=== PATIENT | female | born 1935 | race Caucasian/White ===

== ENCOUNTER → 2018-07-30 | Outpatient (CLI) | payer MEDICARE ==
[~2018-07-30] MED LIST: PNT40TEC PO
--- NOTE | 2018-07-31 07:43 | Diagnostic Imaging Report ---
INDICATION: Digital mammogram bilateral screening with 3D tomosynthesis. This study was compared to the prior exams of 07/29/2014, 07/26/2013 and 07/25/2012. At this time there are no current complaints. The current study was also evaluated with a Computer Aided Detection (CAD) system. FINDINGS: The fibroglandular tissue in both breasts is heterogeneously dense. This does limit the sensitivity of this exam. Overall, there does not appear to have been any significant change when compared to the prior study. No primary or secondary sign of malignancy is noted. IMPRESSION: There is no radiographic evidence for malignancy. ACR BI-RADS Category 1: Negative. Result letter will be mailed to the patient. Note: At least 10% of breast cancer is not imaged by mammography. Dictated by: Dictated on workstation # [id number]
== END ==
LOC: RAD 09:17
PROVIDERS: ATTEND Family Medicine
DX: Z12.31 Encounter for screening mammogram for malignant neoplasm of breast (principal)
CPT/HCPCS: 77067

== ENCOUNTER → 2019-08-16 | Outpatient (CLI) | payer MEDICARE ==
--- NOTE | 2019-08-19 09:05 | Diagnostic Imaging Report ---
INDICATION: Screening The current study was also evaluated with a Computer Aided Detection (CAD) system. 3-D Tomographic imaging was also performed. Comparison made with prior examination of 07/30/2018, 07/29/2014 and 07/26/2013. FINDINGS: The fibroglandular tissues are heterogeneously dense bilaterally. There are vascular benign type calcifications. There is no dominant mass, spiculated lesion or suspicious calcification identified. Skin, nipples and axilla are unremarkable. IMPRESSION: Category 2 benign. ACR BI-RADS Category 2: Benign findings. Result letter will be mailed to the patient. Note: At least 10% of breast cancer is not imaged by mammography. Dictated by: Dictated on workstation # [id number]
== END ==
LOC: RAD 14:42
PROVIDERS: ATTEND Family Medicine
DX: Z12.31 Encounter for screening mammogram for malignant neoplasm of breast (principal)
CPT/HCPCS: 77067

== ENCOUNTER 2020-06-08 11:41 | Emergency (ER) | payer MEDICARE ==
[~2020-06-08] VITALS: Ht 149 cm; Wt 51.0 kg
[2020-06-08] MEDS ORDERED: METF-397 (12:29)
[2020-06-08] MEDS ORDERED: ATOR10TA66 (12:29)
[2020-06-08] MEDS ORDERED: cloNIDine 0.1 MG (CATAPRES) TAB PO ONE (12:30)
--- NOTE | 2020-06-08 12:31 | ED EENT ---
History of Present Illness General Chief Complaint: Nasal Problems Stated Complaint: NOSE BLEED Source: patient Exam Limitations: no limitations History of Present Illness Date Seen by Provider: Jun 08, 2020 Time Seen by Provider: 12:27 Initial Comments To ER with right-sided nosebleed that lasted for about 20 minutes this morning while at work. Is resolved now. She otherwise feels fine. No fevers no chills no shortness of breath no chest pain no lightheadedness Timing/Duration: abrupt Location: nose Allergies and Home Medications Allergies Coded Allergies: No Known Drug Allergies (Unverified , 10/29/14) Home Medications Pantoprazole Sod 40 Mg Tab, 40 MG PO DAILY Prescribed by: KAMINI FRITZ on 10/30/14 0007 Patient Home Medication List Home Medication List Reviewed: Yes Review of Systems Review of Systems Constitutional: see HPI Eyes: No Symptoms Reported Ears: No Symptoms Reported Nose: see HPI Mouth: no symptoms reported Throat: no symptoms reported Respiratory: no symptoms reported Cardiovascular: no symptoms reported Musculoskeletal: no symptoms reported Skin: no symptoms reported Neurological: No Symptoms Reported Hematologic/Lymphatic: No Symptoms Reported Immunological/Allergic: no symptoms reported Past Ykosvke-Aoblgs-Ikjhxg Hx Patient Social History Alcohol Use: Denies Use Recreational Drug Use: No Smoking Status: Former Smoker Former Smoker, Quit: May 23, 1990 Recent Foreign Travel: No Contact w/Someone Who Travel: No Past Medical History Surgeries: Yes (SKIN CA REMOVAL) Respiratory: No Cardiac: No Neurological: No Reproductive Disorders: No Female Reproductive Disorders: Denies Sexually Transmitted Disease: No HIV/AIDS: No Gastrointestinal: Yes (DYSPHAGIA--NO TESTS DONE) Musculoskeletal: No Endocrine: Yes Hypothyroidsim, Diabetes, Non-Insulin dep Cancer: No Psychosocial: No Integumentary: No Blood Disorders: No Adverse Reaction/Blood Tranf: No Physical Exam Vital Signs Vital Signs - First Documented 06/08/20 12:22 Temp 36.7 Pulse 105 Resp 20 B/P (MAP) 204/110 (141) Pulse Ox 99 Height, Weight, BMI Height: 5'0" Weight: 118lbs. oz. [id number]; BMI Method:Stated General Appearance: WD/WN, no apparent distress, other (erythema to the right side of the septum but no active bleeding. No blood in oropharynx. Left nostril is normal. She is hypertensive at 200/100. We will give her a clonidine tablet to get the blood pressure down. Told her to come back if she has any concerns. Since she otherwise feels fine without lightheadedness laboratory evaluation will not be helpful. She does have some petechial appearance rash to the palms of her hands but she states this has been there for many years and is no differe nt.) Eyes: bilateral eye normal inspection, bilateral eye PERRL, bilateral eye EOMI Ears: bilateral ear auricle normal, bilateral ear canal normal, bilateral ear TM normal Neck: non-tender, full range of motion Respiratory: normal breath sounds, no respiratory distress, no accessory muscle use Neurologic/Psychiatric: alert, normal mood/affect, oriented x 3 Skin: normal color, warm/dry Progress/Results/Core Measures Results/Orders My Orders Orders - KEERTHI DOTY APRN Clonidine Tablet (Catapres Tablet) (06/08/20 12:30) Medications Given in ED Current Medications Medications Dose Ordered Sig/Gigi Route Start Time Stop Time Status Last Admin Dose Admin Clonidine HCl 0.1 mg ONCE ONCE PO 06/08/20 12:30 06/08/20 12:31 DC 06/08/20 12:32 0.1 MG Vital Signs/I&O 06/08/20 06/08/20 12:22 12:37 Temp 36.7 Pulse 105 87 Resp 20 16 B/P (MAP) 204/110 (141) 200/101 Pulse Ox 99 99 Departure Impression Primary Impression: Epistaxis Additional Impression: Hypertension Disposition: 01 HOME, SELF-CARE Condition: Stable Departure-Patient Inst. Decision time for Depature: 12:30 Referrals: DENNY STEELE DO (PCP/Family) Primary Care Physician Patient Instructions: High Blood Pressure (DC) Add. Discharge Instructions: 1. Return to ER for any concerns. Follow-up with your doctor about the high blood pressure. If the nosebleed returns, apply the nose clamp for 20 minutes and if that fails to stop the bleeding then return to the emergency room. All discharge instructions reviewed with patient and/or family. Voiced und erstanding. KEERTHI DOTY APRN Jun 08, 2020 12:31
[2020-06-08 12:37] VITALS: BP 200/101
== END 2020-06-08 12:35 | disposition home or self-care (01) ==
LOC: EDUNIT# 11:41 → ER 11:42
DX: R04.0 Epistaxis (principal); I10 Essential (primary) hypertension; Z87.891 Personal history of nicotine dependence
CPT/HCPCS: 99283

== ENCOUNTER → 2021-04-29 | Outpatient (CLI) | payer MEDICARE ==
[~2021-04-29] MED LIST changes: +ATOR10TA66; +METF-397
[2021-04-29 12:48] LABS: ABSOLUTE RETIC # 64 10e9/uL (24-90); BASOPHILS % (AUTO) 1 % (0-10); EOSINOPHILS % (AUTO) 0 % (0-10); HEMATOCRIT 31 % (35-52); HEMOGLOBIN 8.8 g/dL (11.5-16.0); LYMPHOCYTES # (AUTO) 1.4 10^3/uL (1.0-4.0); LYMPHOCYTES % (AUTO) 30 % (12-44); MEAN CORPUSCULAR HEMOGLOBIN 22 pg (25-34); MEAN CORPUSCULAR HGB CONC 29 g/dL (32-36); MEAN CORPUSCULAR VOLUME 79 fL (80-99); MEAN PLATELET VOLUME 10.8 fL (9.0-12.2); MONOCYTES # (AUTO) 0.6 10^3/uL (0.0-1.0); MONOCYTES % (AUTO) 12 % (0-12); NEUTROPHILS # (AUTO) 2.8 10^3/uL (1.8-7.8); NEUTROPHILS % (AUTO) 57 % (42-75); PLATELET COUNT 165 10^3/uL (130-400); RETICULOCYTE % 1.64 % (0.50-2.40); WHITE BLOOD COUNT 4.9 10^3/uL (4.3-11.0)
[2021-04-29 13:29] LABS: ANISOCYTOSIS SLIGHT; LYMPHOCYTES % (MANUAL) 30 %; MONOCYTES % (MANUAL) 10 %; NEUTROPHILS % (MANUAL) 60 %
[2021-04-29 13:30] LABS: POIKILOCYTOSIS SLIGHT
== END ==
LOC: LAB 12:23
PROVIDERS: ATTEND Family Medicine
DX: D64.9 Anemia, unspecified (principal)
CPT/HCPCS: 36415; 82728; 85007; 85027; 85045; 85055

== ENCOUNTER → 2021-05-05 | Outpatient (CLI) | payer MEDICARE | LOC: LAB | PROVIDERS: ATTEND Family Medicine | DX: D50.9 Iron deficiency anemia, unspecified (principal) | CPT/HCPCS: 36415; 82607; 82746 ==

== ENCOUNTER 2021-06-09 05:30 | Outpatient (RCR) | payer MEDICARE ==
[~2021-06-09] VITALS: Ht 150 cm; Wt 41.2 kg
[~2021-06-09 05:30] MED LIST changes: +LEVO75TA97 PO
== END 2021-06-09 11:15 | disposition home or self-care (01) ==
LOC: PREOP 05:30
PROVIDERS: ATTEND Surgery
DX: Z01.812 Encounter for preprocedural laboratory examination (principal); R13.10 Dysphagia, unspecified; Z20.822 Contact with and (suspected) exposure to COVID-19
CPT/HCPCS: 87635

== ENCOUNTER 2021-06-14 08:27 | Day surgery (SDC) | payer MEDICARE ==
[~2021-06-14] VITALS: Ht 150 cm; Wt 41.2 kg
[2021-06-14] MEDS ORDERED: LACTATED RINGERS 1,000 ML IV STA (08:38)
[2021-06-14] MEDS ORDERED: LACTATED RINGERS 1,000 ML IV ONE (08:43)
[2021-06-14] MEDS ORDERED: HURRICAINE EXT TUBE (BENZOCAINE) XX PRN (08:45)
--- NOTE | 2021-06-14 08:50 | Progress Note-Pre Operative ---
Pre-Operative Progress Note H&P Reviewed The H&P was reviewed, patient examined and no changes noted. Time Seen by Provider: 08:48 Date H&P Reviewed: Jun 14, 2021 Time H&P Reviewed: 08:48 Pre-Operative Diagnosis: Dysphagia ALTAGRACIA CERDA DO Jun 14, 2021 08:50
[2021-06-14] MEDS ORDERED: LABETALOL HCL 20 MG/4 ML VIAL ONE (08:51)
[2021-06-14] MEDS ORDERED: proPOfol 200 MG/20 ML (DIPRIVAN) VIAL IV ONE (08:51)
[2021-06-14 09:08] VITALS: BP 185/85
[2021-06-14 09:57] VITALS: BP 100/53
[2021-06-14 10:03] VITALS: BP 118/57
[2021-06-14 10:05] VITALS: BP 138/61
--- NOTE | 2021-06-14 10:08 | Progress Note-Post Operative ---
Post-Operative Progess Note Surgeon (s)/Gerontology Aide (s) Surgeon ALTAGRACIA CERDA DO Gerontology Aide: none Pre-Operative Diagnosis Dysphagia Post-Operative Diagnosis Esophageal stricture vs Mass Hiatal hernia Procedure & Operative Findings Date of Procedure 06/14/21 Procedure Performed/Findings EGD with bx PROCEDURE NOTE: After informed consent was obtained, the patient was brought to the endoscopy suite, placed in bed in left lateral decubitus position. She was administered IV sedation by the WATER TEAM LEADER who then monitored vitals the entire time, heart rate, blood pressure and pulse ox and the scope was inserted down the mouth through the esophagus and on the way down encountered a very narrow area in the esophagus. Took a picture and then did a biopsy, unable to get the scope past this area. Switched to a Pediatric EGD and able to push into the stomach, saw a gastric polyp; looked like a normal polyp. Pushed past the antrum into the duodenum. Duodenum looked good. Pulled back and then retroflexed the scope, saw a large hiatal hernia, took a picture of this and then pulled the scope into the Hiatal hernia under the GE junction, took another biopsy of the GE junction from underneath and in hiatal hernia. Then pushed the scope back into the stomach, suctioned all the air out of the stomach. At this point pulled the scope up the esophagus and saw some tissue in the upper esophagus that did not look normal. Took a picture and then did a biopsy here and then pulled the scope out the mouth. The patient tolerated the procedure, and she recovered in endoscopy suite. Anesthesia Type IV sedation by WATER TEAM LEADER Estimated Blood Loss Estimated blood loss (mL): scant Specimens/Packing Specimens Removed esophageal bx GE jxn bx upper esophagus bx ALTAGRACIA CERDA DO Jun 14, 2021 10:08
[2021-06-14 10:30] VITALS: BP 163/90
--- NOTE | 2021-06-14 10:34 | Endoscopy Discharge Instruct ---
Endo Procedure/Findings Findings 1.: Other Findings (Esophageal stricture) 2.: Gastritis 3.: Hiatal Hernia Discharge Instructions - Activity: You might feel a little sleepy until tomorrow. This is due to the medicine you received to relax you. Until tomorrow, you should: NOT drive a car, operate machinery or power tools. NOT drink any alcoholic beverages. NOT make any important decisions or sign importortant papers. Do not return to work until tomorrow, unless otherwise instructed. Resume previous activities tomorrow. Diet: Start by taking liquids. If you tolerate liquids, advance to solid food. 1.: EGD in 6-8 weeks Notify Physician - If you experience excessive bleeding, unusual abdominal pain, fever, or chest pain, contact your doctor immediately. ALTAGRACIA CERDA DO Jun 14, 2021 10:34
[2021-06-14 10:37] VITALS: BP 163/90
== END 2021-06-14 09:30 | disposition home or self-care (01) ==
LOC: ENDO 08:27
PROVIDERS: ATTEND Surgery
DX: K22.2 Esophageal obstruction (principal); K44.9 Diaphragmatic hernia without obstruction or gangrene; K22.10 Ulcer of esophagus without bleeding; K21.00 Gastro-esophageal reflux disease with esophagitis, without bleeding; K31.7 Polyp of stomach and duodenum; K29.50 Unspecified chronic gastritis without bleeding; E11.9 Type 2 diabetes mellitus without complications; E07.9 Disorder of thyroid, unspecified; I10 Essential (primary) hypertension; R63.4 Abnormal weight loss; E78.5 Hyperlipidemia, unspecified; Z79.899 Other long term (current) drug therapy; Z79.84 Long term (current) use of oral hypoglycemic drugs; Z80.9 Family history of malignant neoplasm, unspecified

== ENCOUNTER 2021-09-02 05:29 | Outpatient (RCR) | payer MEDICARE ==
[~2021-09-02] VITALS: Ht 149.9 cm; Wt 47.3 kg
[~2021-09-02 05:29] MED LIST changes: +LISI10TA25 PO
== END 2021-09-02 08:39 | disposition home or self-care (01) ==
LOC: PREOP 05:29
PROVIDERS: ATTEND Surgery
DX: Z01.812 Encounter for preprocedural laboratory examination (principal); Z20.822 Contact with and (suspected) exposure to COVID-19
CPT/HCPCS: 87635

== ENCOUNTER 2021-09-07 11:25 | Day surgery (SDC) | payer MEDICARE ==
[2021-09-07] VITALS (7 sets, daily range): BP systolic 115–208; BP diastolic 57–112
[~2021-09-07] VITALS: Ht 149.9 cm; Wt 47.3 kg
[2021-09-07] MEDS ORDERED: LACTATED RINGERS 1,000 ML IV ONE (11:28)
[2021-09-07] MEDS ORDERED: LACTATED RINGERS 1,000 ML IV STA (11:29)
[2021-09-07] MEDS ORDERED: HURRICAINE EXT TUBE (BENZOCAINE) XX PRN (11:30)
[2021-09-07] MEDS ORDERED: LABETALOL HCL 20 MG/4 ML VIAL ONE (12:33)
[2021-09-07] MEDS ORDERED: LABETALOL HCL 20 MG/4 ML VIAL IV ONE (12:45)
[2021-09-07] MEDS ORDERED: proPOfol 200 MG/20 ML (DIPRIVAN) VIAL IV ONE (13:22)
--- NOTE | 2021-09-07 13:27 | Progress Note-Pre Operative ---
Pre-Operative Progress Note H&P Reviewed The H&P was reviewed, patient examined and no changes noted. Time Seen by Provider: 11:58 Date H&P Reviewed: Sep 07, 2021 Time H&P Reviewed: 11:58 Pre-Operative Diagnosis: Reflux, hx of esophageal stricture ALTAGRACIA CERDA DO Sep 07, 2021 13:26
--- NOTE | 2021-09-07 14:18 | Anesthesia-General Post-Op ---
MAC Patient Condition Mental Status/LOC: Same as Preop Cardiovascular: Satisfactory Nausea/Vomiting: Absent Respiratory: Satisfactory Pain: Controlled Complications: Absent Post Op Complications Complications None Follow Up Care/Instructions Patient Instructions None needed. Anesthesiology Discharge Order Discharge Order Patient is doing well, no complaints, stable vital signs, no apparent adverse anesthesia problems. No complications reported per nursing. MARIELOS VALDEZ CRNA Sep 07, 2021 14:18
--- NOTE | 2021-09-07 14:28 | Progress Note-Post Operative ---
Post-Operative Progess Note Surgeon (s)/Hardwood Floor Layer (s) Surgeon ALTAGRACIA CERDA DO Hardwood Floor Layer: none Pre-Operative Diagnosis Reflux, hx of esophageal stricture Post-Operative Diagnosis Esophageal stricture Esophagitis Gastritis Hiatal Hernia Procedure & Operative Findings Date of Procedure 09/07/21 Procedure Performed/Findings EGD with bx PROCEDURE NOTE: After informed consent was obtained, the patient was brought to the endoscopy suite, placed in bed in left lateral decubitus position. She was administered IV sedation by the SALES SUPPORT ENGINEER who then monitored vitals the entire time, heart rate, blood pressure and pulse ox and the scope was inserted down the mouth through the esophagus into the stomach. On the way down, noted some severe esophagitis and retained food, took a picture. There may have been a small stricture but easily pushed the scope past this and pushed into the stomach; noted some Gastritis. Pushed past the antrum into the duodenum; duodenum looked good. Pulled back and did a biopsy of the antrum, then retroflexed the scope and saw a 1cm hiatal hernia, took a picture of thisand then pulled the scope into the GE junction, took another picture of the hiatal hernia and then pulled into the esophagus above the small stricture and then did 2 biopsies of the esophagus. Pushed the scope back into the stomach, suctioned all the air out of the stomach. At this point pulled the scope up the esophagus and out the mouth. The patient tolerated the procedure, and she recovered in endoscopy suite. Anesthesia Type IV sedation by SALES SUPPORT ENGINEER Estimated Blood Loss Estimated blood loss (mL): scant Specimens/Packing Specimens Removed antral bx body of stomach bx esophageal bx x 2 ALTAGRACIA CERDA DO Sep 07, 2021 14:28
--- NOTE | 2021-09-07 14:31 | Endoscopy Discharge Instruct ---
Endo Procedure/Findings Findings 1.: Gastritis 2.: Hiatal Hernia 3.: Other Findings (Esophagitis) Discharge Instructions - Activity: You might feel a little sleepy until tomorrow. This is due to the medicine you received to relax you. Until tomorrow, you should: NOT drive a car, operate machinery or power tools. NOT drink any alcoholic beverages. NOT make any important decisions or sign importortant papers. Do not return to work until tomorrow, unless otherwise instructed. Resume previous activities tomorrow. Diet: Start by taking liquids. If you tolerate liquids, advance to solid food. 1.: EGD in 1 year Notify Physician - If you experience excessive bleeding, unusual abdominal pain, fever, or chest pain, contact your doctor immediately. ALTAGRACIA CERDA DO Sep 07, 2021 14:31
[2021-09-07] MEDS ORDERED: hydrALAZINE (APESOLINE) 20 MG/ML VIAL IV ONE (14:35)
[2021-09-07] MEDS ORDERED: hydrALAZINE (APESOLINE) 20 MG/ML VIAL ONE (14:35)
== END 2021-09-07 15:35 | disposition home or self-care (01) ==
LOC: ENDO 11:25
PROVIDERS: ATTEND Surgery
DX: K21.9 Gastro-esophageal reflux disease without esophagitis (principal); I10 Essential (primary) hypertension
CPT/HCPCS: 88305

== ENCOUNTER 2022-09-27 05:25 | Outpatient (CLI) | payer MEDICARE ==
[~2022-09-27] VITALS: Ht 149.9 cm; Wt 49.4 kg
[2022-09-29] MEDS ORDERED: CNC1KV IM (12:52)
== END 2022-09-29 12:54 | disposition home or self-care (01) ==
LOC: PREOP 05:25
PROVIDERS: ATTEND Surgery
DX: Z01.818 Encounter for other preprocedural examination (principal)

== ENCOUNTER 2022-10-03 09:57 | Day surgery (SDC) | payer MEDICARE ==
[~2022-10-03] VITALS: Ht 150 cm; Wt 49.4 kg
[~2022-10-03 09:57] MED LIST changes: +CNC1KV IM
[2022-10-03] MEDS ORDERED: HURRICAINE EXT TUBE (BENZOCAINE) XX PRN (10:00)
[2022-10-03] MEDS ORDERED: LACTATED RINGERS 1,000 ML IV STA (10:00)
--- NOTE | 2022-10-03 10:09 | Progress Note-Pre Operative ---
Pre-Operative Progress Note Date of Available H&P: Sep 13, 2022 Date H&P Reviewed: Oct 03, 2022 Time H&P Reviewed: 10:08 History & Physical: H&P Reviewed, Patient Examed, No changes noted Pre-Operative Diagnosis: Erosive Esophagitis ALTAGRACIA CERDA DO Oct 03, 2022 10:09
[2022-10-03 10:15] VITALS: BP 216/105
[2022-10-03] MEDS ORDERED: PROPOFOL INJECTION 50 ML IV ONE (11:24)
[2022-10-03 11:45] VITALS: BP 103/55
--- NOTE | 2022-10-03 11:48 | Anesthesia-General Post-Op ---
MAC Patient Condition Mental Status/LOC: Same as Preop Cardiovascular: Satisfactory Nausea/Vomiting: Absent Respiratory: Satisfactory Pain: Controlled Complications: Absent Post Op Complications Complications None Follow Up Care/Instructions Patient Instructions None needed. Anesthesiology Discharge Order Discharge Order Patient is doing well, no complaints, stable vital signs, no apparent adverse anesthesia problems. No complications reported per nursing. MOE SOLOMON CRNA Oct 03, 2022 11:48
[2022-10-03 11:50] VITALS: BP 95/50
--- NOTE | 2022-10-03 11:51 | Progress Note-Post Operative ---
Post-Operative Progess Note Surgeon (s)/It Trainer (s) Surgeon ALTAGRACIA CERDA DO It Trainer: none Pre-Operative Diagnosis Erosive Esophagitis Post-Operative Diagnosis Esophagitis Large Hiatal hernia Procedure & Operative Findings Date of Procedure 10/03/22 Procedure Performed/Findings EGD with bx PROCEDURE NOTE: After informed consent was obtained, the patient was brought to the endoscopy suite, placed in bed in left lateral decubitus position. She was administered IV sedation by the EQUITY MANAGER who then monitored vitals the entire time, heart rate, blood pressure and pulse ox and the scope was inserted down the mouth through the esophagus into the stomach. On the way down, noted some mild esophagitis, took a picture, pushed into the stomach, pushed past the antrum into the duodenum. Duodenum looked good. Pulled back and then retroflexed the scope. Saw a large hiatal hernia, took a picture of this and then pulled the scope into the GE junction, took another picture of the hiatal hernia. Next, did a biopsy of the GE junction. Pushed the scope back into the stomach, suctioned all the air out of the stomach. At this point pulled the scope up the esophagus, at the upper end of esophagus may have been a stricture. Pulled the scope completely out of the mouth. The patient tolerated the procedure, and she recovered in endoscopy suite. Anesthesia Type IV sedation by EQUITY MANAGER Estimated Blood Loss Estimated blood loss (mL): scant Specimens/Packing Specimens Removed GE jxn bx ALTAGRACIA CERDA DO Oct 03, 2022 11:51
--- NOTE | 2022-10-03 11:52 | Endoscopy Discharge Instruct ---
Endo Procedure/Findings Findings 1.: Hiatal Hernia 2.: Other Findings (Esophagitis) Discharge Instructions - Activity: You might feel a little sleepy until tomorrow. This is due to the medicine you received to relax you. Until tomorrow, you should: NOT drive a car, operate machinery or power tools. NOT drink any alcoholic beverages. NOT make any important decisions or sign importortant papers. Do not return to work until tomorrow, unless otherwise instructed. Resume previous activities tomorrow. Diet: Start by taking liquids. If you tolerate liquids, advance to solid food. 1.: EGD in 3 years Notify Physician - If you experience excessive bleeding, unusual abdominal pain, fever, or chest pain, contact your doctor immediately. ALTAGRACIA CERDA DO Oct 03, 2022 11:52
[2022-10-03 11:55] VITALS: BP 97/55
[2022-10-03 12:05] VITALS: BP 102/59
[2022-10-03 12:29] VITALS: BP 102/59
== END 2022-10-03 12:33 | disposition home or self-care (01) ==
LOC: ENDO 09:57
PROVIDERS: ATTEND Surgery
DX: K44.9 Diaphragmatic hernia without obstruction or gangrene (principal); K20.90 Esophagitis, unspecified without bleeding; E11.9 Type 2 diabetes mellitus without complications; Z79.84 Long term (current) use of oral hypoglycemic drugs; Z87.891 Personal history of nicotine dependence
CPT/HCPCS: 82947; 88305